=== PATIENT | male | born 1980 | race Caucasian/White ===

== ENCOUNTER 2021-07-09 09:40 | Emergency (ER) | payer MEDICAID ==
[~2021-07-09] VITALS: Ht 190.5 cm; Wt 93.0 kg
[2021-07-09] MEDS ORDERED: SULF1TAB48 PO (10:23)
--- NOTE | 2021-07-09 10:55 | NUR ---
Patient discharged to home in stable condition with bret wrap applied to (L) ankle and crutches. Written and verbal after care instructions given. Patient verbalizes understanding of instructions. Stressed follow up or return to ER for worsening s/s.
== END 2021-07-09 10:53 | disposition home or self-care (01) ==
LOC: ER 09:40
DX: S99.912A Unspecified injury of left ankle, initial encounter (principal); X58.XXXA Exposure to other specified factors, initial encounter; Y93.01 Activity, walking, marching and hiking; Y92.89 Other specified places as the place of occurrence of the external cause; L03.116 Cellulitis of left lower limb
CPT/HCPCS: 73610; A4663